=== PATIENT | male | born 2000 | race Caucasian/White ===

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

== ENCOUNTER 2020-02-07 06:53 | Day surgery (SDC) | payer BC ==
[2019-12-14 11:53] VITALS: BMI 28.8
[~2020-02-07 06:53] MED LIST: LACTATED RINGERS 1,000 ML IV SCH; SODIUM CHLORIDE 0.9% 1,000 ML IV SCH
[2020-02-07 07:26] VITALS: RESP 16; TEMP 98.9
[2020-02-07] MEDS ORDERED: SODIUM CHLORIDE 0.9% 1,000 ML IV ONE (07:26)
[2020-02-07 07:27] LABS: Basophils # (A) 0.1 k/uL (0-0.2); Basophils % (A) 1 %; Eosinophils # (A) 0.2 k/uL (0-0.7); Eosinophils % (A) 3 %; HCT 47.6 % (39.0-53.0); Lymphocytes # (A) 3.4 k/uL (1.0-4.8); Lymphocytes % (A) 40 %; MCH 31.4 pg (25.0-35.0); MCHC 35.6 g/dL (31.0-37.0); MCV 88.1 fL (80.0-100.0); Mean Platelet Volume 7.1; Monocytes # (A) 0.3 k/uL (0-1.0); Monocytes % (A) 4 %; Neutrophils # (A) 4.2 k/uL (1.3-7.7); Neutrophils % (A) 50 %; Platelet Count 279 k/uL (150-450); RBC 5.41 m/uL (4.30-5.90); RDW 11.7 % (11.5-15.5); WBC 8.4 k/uL (4.0-11.0)
[2020-02-07 07:38] LABS: African American GFR (CKD) >90 (>60 ml/min/1.73 sqM); Anion Gap 13 mmol/L; Blood Urea Nitrogen 16 mg/dL (9-20); Calcium 9.9 mg/dL (8.4-10.2); Carbon Dioxide 25 mmol/L (22-30); Chloride 103 mmol/L (98-107); Glucose 119 mg/dL (74-99); Non-African American GFR(CKD) 90 (>60 ml/min/1.73 sqM); Potassium 3.9 mmol/L (3.5-5.1); Sodium 141 mmol/L (137-145)
[2020-02-07] MEDS ORDERED: MIDAZOLAM 2 MG/2 ML VIAL ONE (08:25)
[2020-02-07] MEDS ORDERED: fentaNYL (PF) 50 MCG/ML 2 ML AMP ONE (08:25)
[2020-02-07] MEDS ORDERED: ISOPROTERENOL 250 MCG/1.25 ML SYR IV ONE (08:25)
[2020-02-07] MEDS ORDERED: HYDROmorphone (PF) 1 MG/ML ONE (08:25)
--- NOTE | 2020-02-07 08:27 | P.HPCAR ---
History of Present Illness This is Dr. 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 His monitor revealed a very high PVC burden 2-D echo showed a mildly enlarged RV but on cardiac MRI there was no evidence for arrhythmogenic dysplasia ROS: No fever chills or rigors, no cough, phlegm or expectoration, no nausea, vomiting or diarrhea, no hematuria, dysuria, no musculoskeletal complaints, no strokes or seizures, no skin lesions. EXAMINATION: Afebrile 98.9F pulse rate in the 50s, irregular this time Normal respirations Sitting comfortably in bed Blood pressure 178/81 mmHg, BMI 29 Breath sounds are clear no rhonchi no crackles Heart sounds S1 and S2 are normal irregular no murmurs no gallops Abdomen soft Groins are normal good pulses Extremities warm no edema REVIEW OF LABS, ECG & MEDICAL DATA Hemoglobin 17, platelet count 279,000 Sodium 141, potassium 3.9, BUN 16, creatinine 1.17 Physical Exam Vitals: Vital Signs Temp Pulse Resp BP Pulse Ox 02/07/20 07:24 98.9 F 57 L 16 178/81 96 Intake and Output 02/06/20 02/07/20 02/07/20 22:59 06:59 14:59 Intake Total 20 Balance 20 Intake: IV 20 Past Medical History Additional Past Medical History / Comment(s): see Dr Rodriguez's H&P. irregular heart beat History of Any Multi-Drug Resistant Organisms: None Reported Past Surgical History: No Surgical Hx Reported Past Anesthesia/Blood Transfusion Reactions: No Reported Reaction Smoking Status: Never smoker Physical Examination Vital Signs Temp Pulse Resp BP Pulse Ox 02/07/20 07:24 98.9 F 57 L 16 178/81 96 Intake and Output 02/06/20 02/07/20 02/07/20 22:59 06:59 14:59 Intake Total 20 Balance 20 Intake: IV 20 Results 02/07/20 07:13 02/07/20 07:13 CBC 02/07/20 Range/Units 07:13 WBC 8.4 (4.0-11.0) k/uL RBC 5.41 (4.30-5.90) m/uL Hgb 17.0 (13.0-17.5) gm/dL Hct 47.6 (39.0-53.0) % Plt Count 279 (150-450) k/uL Comprehensive Metabolic Panel 02/07/20 Range/Units 07:13 Sodium 141 (137-145) mmol/L Potassium 3.9 (3.5-5.1) mmol/L Chloride 103 (98-107) mmol/L Carbon Dioxide 25 (22-30) mmol/L BUN 16 (9-20) mg/dL Creatinine 1.17 (0.66-1.25) mg/dL Glucose 119 H (74-99) mg/dL Calcium 9.9 (8.4-10.2) mg/dL Current Medications Generic Name Dose Route Start Last Admin Trade Name Freq PRN Reason Stop Dose Admin Sodium Chloride 1,000 mls @ 20 mls/hr 02/03/20 14:15 Saline 0.9% IV .Q24H SUZANNE Lactated Ringer's 1,000 mls @ 20 mls/hr 02/07/20 05:46 Lactated Ringers IV .Q24H SUZANNE Sodium Chloride 1,000 mls @ 20 mls/hr 02/07/20 05:46 Saline 0.9% IV .Q24H SUZANNE Intake and Output 02/06/20 02/07/20 02/07/20 22:59 06:59 14:59 Intake Total 20 Balance 20 Intake: IV 20 02/07/20 07:13 02/07/20 07:13
[2020-02-07] MEDS ORDERED: HEPARIN SODIUM (1,000 UNIT/ML) 1,000 UNIT in SODIUM CHLORIDE 0.9% 1,000 ML IRRIGATION ONE (08:30)
[2020-02-07] MEDS ORDERED: LIDOCAINE 1% INJ 10MG/ML (20 ML MDV) ONE ×2 (08:49→09:12)
[2020-02-07] MEDS ORDERED: LIDOCAINE 1% INJ 10MG/ML (20 ML MDV) SQ ONE (09:10)
[2020-02-07] MEDS ORDERED: ACETAMINOPHEN IV (For NPO) 1,000 MG in EMPTY BAG 1 BAG IVPB ONE (12:58)
[2020-02-07] MEDS ORDERED: ACETAMINOPHEN TAB 325 MG TAB PO PRN (12:58)
--- NOTE | 2020-02-07 13:16 | P.PRLE ---
RE: Khoi Dennis Dear Melody Khoi underwent a diagnostic EP study and ablation of the PVC focus close to the tricuspid annulus on the anterior inferior wall of the right ventricle This was a heavily trabeculated area and we were able to reduce the PVC burden significantly. However this appears to be a deep focus within with thick trabeculations He tolerated the procedure well without any acute complications He will follow with you and Dr. Suarez as before Thank you for entrusting me with the care of the patient Warm regards Sincerely Luis Rodriguez
--- NOTE | 2020-02-07 14:47 | CE ---
CARDIAC ELECTROPHYSIOLOGY REPORT Khoi Dennis is a 19-year-old male patient with very high PVC burden, greater than 25% with a normal MRI and no current evidence for arrhythmogenic cardio myopathy. He was brought in the EP lab for an EP study and ablation. Patient was brought to the EP lab in a fasting state. Written informed consent was obtained prior to the procedure. The right and left groins were prepped and draped as per protocol. Venous sheaths were placed in the right and left femoral veins and via these diagnostic and mapping ablation catheters were placed. Patient was almost in a bigeminal pattern, very frequent PVCs which had a left bundle branch block morphology. But flat to slightly negative and fractionated electrograms in lead 3, upright in lead 1 and lead 2. Venous sheaths were placed in the right and left femoral veins. The catheters were placed in the heart. This IN interval 112 milliseconds, QRS 97 milliseconds, QT 333 milliseconds. AH 59 milliseconds, HV interval 41 milliseconds. Sinus node recovery times at 600, 400 100 milliseconds were 703, 948 and 862 milliseconds. AV node Wenckebach block 330 milliseconds. A 2D electro anatomic mapping of the right ventricle was performed. Intracardiac echo was performed. The tricuspid and pulmonic valve, the inflow and the outflow tract and the body of the right ventricle underwent 3D anatomic mapping. Following that, activation mapping. A dual-chamber ICD for the leads V2 back off mL is the 3D electro anatomic mapping was performed. The earliest activation site was noted in the anterior inferior wall very to inject position very close to the tricuspid anulus. Intracardiac echo at this site reveals a very thick trabeculations. Pace mapping was then performed and the pace mapping coincided with activation mapping with a percentage of greater than 95%-96%. RF ablation was then performed. A sheath had to be used to improve stability. Once the sheath was used, the irrigated tip ablation catheter was looped into across the tricuspid anulus. RF ablation was applied with a power of 40 claudio and good contact force of between 10-25 g. We noted that there would be suppression of the PVCs when mechanical pressure was applied. However, the PVCs were return and a cattle pressure was released. There was suppression of the sites with RF ablation also and then the PVCs were returned but with a much lower frequency. RF ablation was applied at the earliest activation sites as well as the best pace map resulting in significant reduction, but not complete elimination of these deep PVCs with the trabeculations. At the end of the procedure, there was significant reduction in the PVC burden. Intracardiac echo revealed absence of any pericardial effusion. All catheters were then removed and a FemoStop was applied. RESULT: Successful mapping and ablation of a deep PVC focus close to the tricuspid anulus in the anterior inferior RV. Intracardiac echo revealed thickly trabeculated wall. Good power and about a 40 claudio of contact force of between 10-25 g was applied. The pace map and activation map coincided. The patient tolerated the procedure well without any acute complications. PLAN: It is expected the patient will continue to have some PVCs and as long as a PVC burden is significantly lower, he should be monitored on a yearly basis with 2D echoes to evaluate his right ventricle and consideration for an MRI and follow up in about 2-3 years depending upon the results of the echo. No medications recommended. Update, one hour post ablation: Patient was experiencing PVCs on the night monitor. These were his clinical PVCs. The percentage of PVCs were definitely lower than before ablation. These occurred despite Careful activation mapping of the right ventricle to map the earliest site of activation Careful pace mapping The best pace map area and the earliest activation site coincided Excellent catheter stability was achieved by using a long sheath as well as looping the irrigated RF ablation catheter across the tricuspid valve and laying it parallel to the tricuspid valve Good contact force ranging from 10 g to 25 g Power of 40 W for the lesions With mechanical pressure as well as with RF ablation complete elimination of the PVCs transiently PVCs would return at the lower frequency These PVCs are originating from the RV body, in the RV inflow area close to the tricuspid valve anterior inferiorly (non-RVOT location) The PVC QRS morphology shows significant fractionation especially in lead 3 19-year-old male patient with a very high PVC burden who currently does not demonstrate any evidence for arrhythmogenic cardio myopathy on cardiac MRI I would recommend a follow-up Holter monitor in 6 weeks Repeat yearly echo/doppl Heart rate MRI based on the results of the echo and his arrhythmias Exercise stress testing in the future to look for any exercise-induced VT Consideration for genetic testing for arrhythmogenic cardio myopathy MMODL / IJN: [id number] / WILNER
[2020-02-07 17:23] VITALS: BP 142/64; PULSE 86
[2020-02-07] MEDS ORDERED: ACETAMINOPHEN TAB 500 MG TAB PO ONE (18:04)
== END 2020-02-07 18:34 | disposition home or self-care (01) ==
LOC: CATHEP 06:53
PROVIDERS: ATTEND Internal Medicine Clinical Cardiac Electrophysiology
DX: I49.3 Ventricular premature depolarization (principal); I51.7 Cardiomegaly; Z82.49 Family history of ischemic heart disease and other diseases of the circulatory system; Z79.899 Other long term (current) drug therapy
CPT/HCPCS: 93662; 93654; 80048; 85025; C1894; C1769 ×2; C1759; C1893; C1732; C1730; J2250; J2001; J3010; J1644; J1170; 93613; 93653

== ENCOUNTER → 2023-07-09 | Outpatient (CLI) | payer OTHER ==
--- NOTE | 2023-07-09 16:33 | CT ---
EXAMINATION TYPE: CT ankle LT wo con CT DLP: 291 mGycm, Automated exposure control for dose reduction was used. DATE OF EXAM: 07/09/2023 4:22 PM COMPARISON: None CLINICAL INDICATION:Male, 22 years old with history of S92.122A DISP FX OF BODY OF LEFT TALUS, INIT F OR C; [facility], Fell off ladder x 10 days ago TECHNIQUE: Axial images were obtained of the CT ankle LT wo con, Additional coronal and sagittal refo rmatted images and soft tissue and bone window were obtained for review. 3-D reconstruction was creat ed on a separate workstation. Contrast used: (None if empty) Oral contrast used: (None if empty) FINDINGS: There is a comminuted acute fracture of the posterior talus with intra-articular extension. There is less than 1 mm step-off the talus on coronal imaging. Multiple fracture fragments are prese nt most pronounced medially. No additional fractures. No soft tissue swelling throughout the ankle. IMPRESSION: Comminuted posterior medial talus fracture with intra-articular extension with minimal/1 mm and step- off at the ankle mortise fragment.
== END | disposition home or self-care (01) ==
LOC: RADCTMAIN 15:56
PROVIDERS: ATTEND Podiatrist
DX: S92.122A Displaced fracture of body of left talus, initial encounter for closed fracture (principal)